=== PATIENT | female | born 1990 | race Caucasian/White ===

== ENCOUNTER → 2021-03-31 00:46 | Outpatient (CLI) | payer OTHER, SELFPAY ==
[2021-04-01 16:57] LABS: SARS-CoV-2 RNA PCR Negative
== END ==
PROVIDERS: PCP Internal Medicine; Visit Provider Otolaryngology
DX: Z01.812 Encounter for preprocedural laboratory examination (principal); Z20.822 Contact with and (suspected) exposure to COVID-19
CPT/HCPCS: C9803; U0003; U0005

== ENCOUNTER 2021-04-03 00:30 | Day surgery (SDC) | payer OTHER, SELFPAY ==
[2021-03-21 14:21] VITALS: BMI 30.7
[2021-04-03] VITALS (8 sets, daily range): BP systolic 102–126; BP diastolic 56–79; PULSE 53–89; RESP 14–16; TEMP 36.3–36.8; O2SAT 99–100
--- NOTE | 2021-04-03 06:31 | P.PNAN_ITS ---
Anes - Initial Pre Proc Eval Procedure: Operation Date: 04/03/21 07:30 Proposed Procedures p Fusion Guided Bilateral Frontal Sinusotomy, Bilateral Ethmoidectomy, Bilateral Sphenoidotomy, Bilateral Maxillary Antrostomy, Bilateral Turbinate Reduction, - Jamin Clarke MD s Septoplasty, Bilateral Maxillary Lavage - Jamin Clarke MD Date/Time: 04/03/21 06:31 Surgeon: Jamin Clarke MD Pre Op Diagnosis: chronic sinusitis Patient Data Age: 31 Gender: F Height: 1.57 m Weight: 76.36 kg Allergies Allergy/AdvReac Type Severity Reaction Status Date / Time No Known Allergies Allergy Verified 03/21/21 13:48 Home Medications Medication Instructions Recorded Confirmed Type Women's Complex 1 tab-cap PO DAILY 03/21/21 03/21/21 History sertraline 100 mg PO DAILY 03/21/21 03/21/21 History Patient hx anesthesia problems: none Family hx anesthesia problems: none [facility] Past Medical History Medical History (Updated 04/03/21 @ 06:31 by Rob Samuels MD) Anxiety Obesity Social History Social History Smoking status: Current every day smoker Alcohol intake: current Drinks per week: 2 Living arrangements: with family Spiritual care concerns: No Anes - Eval Final PreProcedure Day of Procedure 04/03/21 06:31 Patient weight: obese Heart: regular rate and rhythm Lungs: clear to auscultation Airway: Mallampati scale class 1 Neurological: alert and oriented Last oral intake: >/= 8 hours ASA classification: II Emergent: no Anesthetic plan: proceed Anesthesia type and monitoring: general ETT and standard monitoring Informed Consent: The patient's anesthetic plan and its attendant risks and benefits were discussed with the patient/family/POA. Questions were solicited and answers provided to the satisfaction of the patient/family/POA.
[2021-04-03] MEDS: LACTATED RINGERS 1,000 ML 30 ML IV CONT ×2 (06:48→09:30)
[2021-04-03] MEDS: ACETAMINOPHEN 500 MG TABLET 1000 MG PO (06:49)
--- NOTE | 2021-04-03 07:13 | PM.IMHP ---
H&P: HPI History of Present Illness Date/Time: 04/03/21 07:13 Chief Complaint: Chronic sinusitis Narrative: Chronic sinusitis Review of Systems Review of Systems: All systems reviewed & are unremarkable except as noted in HPI and below PMFSH Past Medical History Medical History Anxiety Obesity Social History Social History Smoking status: Current every day smoker Alcohol intake: current Drinks per week: 2 Living arrangements: with family Spiritual care concerns: No Meds Home Medications and Allergies Home Medications Medication Instructions Recorded Confirmed Type Women's Complex 1 tab-cap PO DAILY 03/21/21 03/21/21 History sertraline 100 mg PO DAILY 03/21/21 03/21/21 History Allergies Allergy/AdvReac Type Severity Reaction Status Date / Time No Known Allergies Allergy Verified 03/21/21 13:48 Exam Narrative: Exam Narrative: Deviated, chronic sinus inflammation, rest of exam normal Assessment and Plan Assessment and plan (1) Chronic sinusitis: Qualifiers: Sinusitis location: pansinusitis Qualified Code(s): J32.4 - Chronic pansinusitis Code(s): J32.9 - Chronic sinusitis, unspecified Status: Acute Assessment and Plan: Renate has chronic rhinosinusitis, failed medical therapy, here today for endoscopic sinus surgery. r/b/a reviewed as noted in outpt H&P.
--- NOTE | 2021-04-03 07:30 | WPDHPUPDATE1 ---
History and Physical Update Update Date/Time: 04/03/21 07:30 History and Physical has been reviewed, including an updated exam of the patient. There are NO changes in the patient's condition. Risks, benefits, and alternatives have been discussed and questions answered. Patient agrees to proceed with procedure.
[2021-04-03] MEDS: ceFAZolin 2 GM/D5W 50 ML 2 GM/50 ML BAG IVPB (07:39)
[2021-04-03] MEDS: OXYMETAZOLINE HCL 0.05% NAS 15 ML BTL (*BKC) 1 SPRAY NASAL (08:36)
[2021-04-03] MEDS: LIDO 1%/EPINEPHRINE 1:100,000 50 ML VIAL INFILTRATE (08:41)
--- NOTE | 2021-04-03 09:21 | W.PM.PROC2 ---
Procedure Note - Detailed Date of Procedure 04/03/21 Pre-op Diagnosis chronic sinusitis Post-op Diagnosis same Procedure Performed Septoplasty, turbinoplasty, bilateral frontal sinusotomy, bilateral total ethmoidectomy, bilateral sphenoidotomy, bilateral maxillary antrostomy, bilateral juvenal bullosectomy, image guided surgery. Surgeon Jamin Clarke MD Anesthesia general Indications Chronic sinusitis Findings Deviated septum, chronic sinusitis Description of Procedure On the date of procedure the patient was met in the preoperative area and risk and benefits of the procedure reviewed with the patient as documented in the H&P and they elected to proceed with surgery. Patient was brought back to the operating room by the anesthesia team and underwent general endotracheal anesthesia. Once an adequate plane of anesthesia was obtained a timeout was performed to assure the patient identification the patient here to be performed were correct. They were.The patient was then prepped and draped in the normal fashion for endoscopic sinus surgery. The diffusion image guidance system was calibrated and used for the entire case. Afrin-soaked pledgets were placed in the nasal cavities bilaterally. The entire case was performed under endoscopic visualization. The left side was narrowed due to septal deviation.? Thus, septoplasty was required.? A left hemitransfixion incision was made in the left caudal septum and a mucoperichondrial flap was elevated in the usual fashion. The flap was elevated under endoscopic visualization and the remainder of the case was performed with endoscopic assistance. Using a D-knife, an incision was made through the cartilaginous septum with care to preserve the appropriate caudal and dorsal ?L-strut? of cartilage. The cartilage was then disarticulated from the bony-cartilaginous junction and the deviated cartilage was removed. Further deviated bone and cartilage was removed from the maxillary crest and posterior bony septum with care to avoid injury to the mucoperichondrial flap using a combination of dissection and Santo-Lakesha forceps. Once this was completed, the hemitransfixion incision was closed using simple interrupted 4-0 chromic suture. A quilting stitch to reapproximate the mucoperichondrial flaps was then placed using 4-0 plain gut suture on a Arturo needle. 1% lidocaine with 1:100,000 epinephrine was then injected into the root of the middle turbinate and lateral nasal wall. Attention was first directed towards the left side. The middle turbinate was aerated and medialized and the osteomeatal complex was identified with a silvia probe. Juvenal bullsectomy was performed. Using a 90 degree backbiter, the uncinate process was reflected anteriorly and removed using a combination of sharp and powered dissection. The maxillary antrostomy was then created and widened by identifying the natural ostia and opening the sinus with straight shi-cut forceps, backbiter, and microdebrider. Continuing with the microdebrider, the anterior ethmoid bulla was opened. Careful dissection was carried out posteriorly, through the basal lamella and posterior ethmoid cells until the sphenoid rostrum was identified. A Zina suction bluntly identified the sphenoid os and the opening was widened with microdebrider and mushroom punch to 5mm. Using an image guided curved suction as well as J-curette, the posterior most ethmoid cell was identified and the ethmoids were bluntly fractured and dissected from posterior to anterior along the base of the skull. The remaining bone fragments were removed with appropriate curved instruments and microdebrider.? Lastly, image guided frontal suction and sinus seeker were used to identify the frontal sinus and enter it.? Next, the left maxillary antrostomy, ethmoidectomy, sphenoidotomy and juvenal bullosectomy were carried out in identical fashion. Next, the left frontal sinus was identified and entered using image guided suction, se
[2021-04-03] MEDS: fentaNYL CITRATE INJ (*CRX) 100 MCG/2 ML VIAL 25 MCG IV PUSH ×2 (09:52→09:56)
--- NOTE | 2021-04-03 11:06 | SUR.PHASEII ---
Patient is very drowsy and just sleeping on and off in the recliner.
== END 2021-04-03 11:54 | disposition home or self-care (01) ==
PROVIDERS: PCP Internal Medicine; Visit Provider Otolaryngology
PROC: (CPT 30520; principal; 2021-04-03 07:30)
PROC: (CPT 30520; 2021-04-03 07:30)
DX: J32.8 Other chronic sinusitis (principal); J34.2 Deviated nasal septum; J34.3 Hypertrophy of nasal turbinates; J30.2 Other seasonal allergic rhinitis; J32.1 Chronic frontal sinusitis; J32.2 Chronic ethmoidal sinusitis; J32.3 Chronic sphenoidal sinusitis; F41.9 Anxiety disorder, unspecified; F17.210 Nicotine dependence, cigarettes, uncomplicated; E66.01 Morbid (severe) obesity due to excess calories; Z68.31 Body mass index [BMI] 31.0-31.9, adult
CPT/HCPCS: 30520; 31256; 31240; 61782; 30140; 31257; 31253; A9270; C9803; J0330; J0690; J1100; J1200; J2250; J2405; J2704; J3010; J7040; J7120; U0003; U0005